=== PATIENT | male | born 1970 | race Caucasian/White ===

== ENCOUNTER 2020-06-08 11:27 | Outpatient (RCR) | payer BC ==
[~2020-06-08 11:27] MED LIST: CITA10TA70 PO; CYCL10TA9 PO; DIPH25TA82 PO; MELA5TAB12 PO; NORT50CA PO; SULF1TAB23 PO
== END 2020-06-21 13:37 | disposition home or self-care (01) ==
PROVIDERS: ATTEND Orthopaedic Surgery
DX: Z47.89 Encounter for other orthopedic aftercare (principal)

== ENCOUNTER → 2022-06-19 | Outpatient (CLI) | payer BC ==
[~2022-06-19] VITALS: Ht 182.8 cm; Wt 123.7 kg
[~2022-06-19] MED LIST changes: +CITA40TA13 PO; +TRAM50TA3 PO
== END | disposition home or self-care (01) ==
LOC: PREOP 05:38
PROVIDERS: ATTEND Surgery
DX: Z01.818 Encounter for other preprocedural examination (principal)

== ENCOUNTER 2022-06-26 09:33 | Day surgery (SDC) | payer BC ==
[~2022-06-26] VITALS: Ht 182.9 cm; Wt 123.7 kg
[2022-06-26] MEDS ORDERED: LACTATED RINGERS 1,000 ML IV ONE (09:39)
[2022-06-26] MEDS ORDERED: LACTATED RINGERS 1,000 ML IV STA (09:42)
[2022-06-26] MEDS ORDERED: LIDOCAINE JELLY 2% 6 ML SYRINGE MM PRN (09:45)
[2022-06-26 10:00] VITALS: BP 128/96
[2022-06-26] MEDS ORDERED: MIDAZOLAM 2 MG/2 ML (VERSED) VIAL ONE (10:32)
[2022-06-26] MEDS ORDERED: PROPOFOL INJECTION 0 ML IV ONE (10:32)
--- NOTE | 2022-06-26 10:41 | Progress Note-Pre Operative ---
Pre-Operative Progress Note H&P Reviewed The H&P was reviewed, patient examined and no changes noted. Date Seen by Provider: Jun 26, 2022 Time Seen by Provider: 10:00 Date H&P Reviewed: Jun 26, 2022 Time H&P Reviewed: 10:00 Pre-Operative Diagnosis: screening FLORI Mc MD Jun 26, 2022 10:41
--- NOTE | 2022-06-26 10:42 | Discharge Inst-Surgical ---
D/C Lap Instructions-CASSIE Follow Up Activity as tolerated High Fiber Diet 25g or more per day Avoid Alcohol, Caffeine, Spicy [place] and Acid foods. Drink 64 fluid oz or more of fluids per day. Symptoms to Report: Fever over 101 degree F, Nausea/Vomiting If any problems/questions: Contact your physician or go to Emergency Room FLORI MATTHEWS MD Jun 26, 2022 10:42
[2022-06-26] MEDS ORDERED: ONDANSETRON 4 MG/2 ML (SDV) Z0FRAN IVP PRN (10:45)
[2022-06-26] MEDS ORDERED: ONDANSETRON 4 MG (ZOFRAN) ORAL DISSOLVE TAB PO PRN (10:45)
[2022-06-26] MEDS ORDERED: PROPOFOL INJECTION 50 ML IV ONE (11:06)
[2022-06-26 11:15] VITALS: BP 109/63
[2022-06-26 11:18] VITALS: BP 115/66
[2022-06-26 11:20] VITALS: BP 115/66
--- NOTE | 2022-06-26 11:23 | Progress Note-Post Operative ---
Post-Operative Progess Note Surgeon (s)/Lumber Inspector (s) Surgeon FLORI MATTHEWS MD Lumber Inspector: none Pre-Operative Diagnosis screening colo Post-Operative Diagnosis chronic stage 2 ext and int hemorrhoids. Procedure & Operative Findings Date of Procedure 06/26/22 Procedure Performed/Findings colonoscopy Anesthesia Type mac Estimated Blood Loss Estimated blood loss (mL): minimal Specimens/Packing Specimens Removed none FLORI MATTHEWS MD Jun 26, 2022 11:23
[2022-06-26 11:33] VITALS: BP 115/66
--- NOTE | 2022-06-26 14:22 | Anesthesia-General Post-Op ---
MAC Patient Condition Mental Status/LOC: Same as Preop Cardiovascular: Satisfactory Nausea/Vomiting: Absent Respiratory: Satisfactory Pain: Controlled Complications: Absent Post Op Complications Complications None Follow Up Care/Instructions Patient Instructions None needed. Anesthesiology Discharge Order Discharge Order Patient is doing well, no complaints, stable vital signs, no apparent adverse anesthesia problems. No complications reported per nursing. JACKIE HERMOSILLO CRNA Jun 26, 2022 14:22
--- NOTE | 2022-06-26 17:40 | OPERATIVE REPORT ---
DATE OF SERVICE: 06/26/2022 ATTENDING PRIMARY CARE PHYSICIAN: Dr. Tamiko Vides. PREOPERATIVE DIAGNOSIS: Screening colonoscopy. POSTOPERATIVE DIAGNOSES: Mild chronic stage II external and internal hemorrhoids. Remainder of the colon and rectum were normal. PROCEDURE PERFORMED: Colonoscopy. SURGEON: Flori Matthews MD. ANESTHESIA: Monitored anesthesia care. ESTIMATED BLOOD LOSS: Minimal. FINDINGS: Mild chronic stage II external and internal hemorrhoids. Remainder of the colon and rectum were normal. DISPOSITION: The patient tolerated the procedure well. INDICATION FOR PROCEDURE: The patient is a 52-year-old male referred over to us for screening colonoscopy. He has not had a colonoscopy at this point in his life. He does not report any major issues with diarrhea nor constipation as well as no red blood per rectum nor any dark tarry stools. He also does not report any family history of colon cancer. DESCRIPTION OF PROCEDURE: The patient was brought to the endoscopy suite and laid in the left lateral decubitus position. After adequate IV pain and sedative medications and monitored anesthesia care, a digital rectal examination was performed. Chronic stage II external and internal hemorrhoids were identified, which were not actively edematous nor inflamed and no bleeding. Normal sphincter tone was felt and there were no palpable masses. Prostate gland was palpable and appeared normal. The endoscope was then intubated into the anus and rectum gently insufflated. The endoscope was then advanced through the valves of Barker of the rectum with no polyps or any neoplasms. We then proceeded through the sigmoid colon, where no diverticulosis identified. The endoscope was then advanced to the remainder of the descending, transverse and ascending colon to the cecum, which were normal. No polyps or any neoplasms identified throughout the colon or rectum. The endoscope was then slowly withdrawn with taking a second look and suctioning of residual air with no additional findings. The patient tolerated the procedure well. We will recommend continued medical management with a high fiber diet with at least 30 grams of fiber daily and recommend a fiber supplement to reach that goal daily to promote soft consistency stools on a daily basis. If he is asymptomatic, he does not need another colonoscopy for another 10 years. Job ID: [id number] DocumentID: [id number] Dictated Date: 06/26/2022 11:13:04 Elevator Constructor Helper Date: 06/26/2022 17:40:26 Dictated By: FLORI MATTHEWS MD
== END 2022-06-26 11:35 | disposition home or self-care (01) ==
LOC: ENDO 09:33
PROVIDERS: ATTEND Surgery
DX: Z12.11 Encounter for screening for malignant neoplasm of colon (principal); K64.1 Second degree hemorrhoids; K64.4 Residual hemorrhoidal skin tags; Z28.310 Unvaccinated for COVID-19; F17.220 Nicotine dependence, chewing tobacco, uncomplicated; Z88.0 Allergy status to penicillin